=== PATIENT | female | born 1970 | race Caucasian/White ===

== ENCOUNTER 2017-02-03 10:34 | Observation (INO) | payer OTHER ==
[2017-02-03] MEDS ORDERED: OXYCODONE/APAP 5/325 TAB PO ONE (11:41)
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
[2017-02-03] MEDS ORDERED: NS 1,000 ML IV ONE ×2 (13:30→13:32)
[2017-02-03 13:46] LABS: % IMMATURE GRANULYOCYTES 0.7 % (0.0-1.1); ABSOLUTE IMMATURE GRANULOCYTES 0.12 10^3/uL (0.00-0.10); ADD DIFF? NO; ADD MORPH? NO; ADD SCAN? NO; ATYPICAL LYMPHOCYTE FLAG 10 (0-99); FRAGMENT RBC FLAG 0 (0-99); HEMATOCRIT 38.2 % (38.0-47.0); HEMOGLOBIN 13.1 g/dL (12.6-16.3); LEFT SHIFT FLG 0 (0-99); LIPEMIA HEMOLYSIS FLAG 90 (0-99); MEAN CELL HEMOGLOBIN 31.6 pg (27.9-34.1); MEAN CELL HEMOGLOBIN CONCENTR. 34.3 g/dL (32.4-36.7); MEAN PLATELET VOLUME 9.2 fL (8.7-11.7); PLATELET CLUMPS FLAG 0 (0-99); PLATELET COUNT 301 10^3/uL (150-400); RED BLOOD CELL COUNT 4.15 10^6/uL (4.18-5.33)
[2017-02-03 14:07] LABS: ANION GAP 12 mEq/L (8-16); CALCIUM 9.8 mg/dL (8.5-10.4); CARBON DIOXIDE 21 mEq/l (22-31); CHLORIDE 107 mEq/L (97-110); CREATININE 0.7 mg/dL (0.6-1.0); GLOMERULAR FILTRATION RATE > 60; GLUCOSE 106 mg/dL (70-100); POTASSIUM 3.7 mEq/L (3.5-5.2); SODIUM 140 mEq/L (134-144)
[2017-02-03] MEDS ORDERED: HYDROmorphONE/DILAUDID 1 MG/ML SYR IVP ONE ×3 (15:43→17:58)
[2017-02-03] MEDS ORDERED: ONDANSETRON 4 MG/2 ML VIAL IVP PRN (15:43)
[2017-02-03] MEDS ORDERED: ONDANSETRON 4 MG/2 ML VIAL ONE (15:45)
[2017-02-03] MEDS ORDERED: HYDROmorphONE/DILAUDID 1 MG/ML SYR ONE (17:08)
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
[2017-02-03] MEDS ORDERED: KETOROLAC 30 MG/1 ML SDV IVP ONE (20:32)
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
[2017-02-03] MEDS ORDERED: D5W 1/2 NS W/ 20 KCl/L 1,000 ML IV SCH (20:45)
[2017-02-03] MEDS: HYDROmorphONE/DILAUDID 1 MG/ML SYR IVP PRN ×2 (20:50→23:06)
[2017-02-03] MEDS: ONDANSETRON 4 MG/2 ML VIAL IVP PRN (20:54)
[2017-02-03] MEDS ORDERED: NATURE THYROID PO SCH (21:00)
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
[2017-02-04] MEDS: HYDROmorphONE/DILAUDID 1 MG/ML SYR IVP PRN ×3 (01:59→06:23)
[2017-02-04] MEDS: KETOROLAC 15 MG/1 ML SDV IVP SCH ×4 (02:01→16:50)
[2017-02-04 05:07] LABS: % IMMATURE GRANULYOCYTES 0.3 % (0.0-1.1); ABSOLUTE IMMATURE GRANULOCYTES 0.03 10^3/uL (0.00-0.10); ADD DIFF? NO; ADD MORPH? NO; ADD SCAN? NO; ATYPICAL LYMPHOCYTE FLAG 0 (0-99); FRAGMENT RBC FLAG 0 (0-99); HEMOGLOBIN 11.1 g/dL (12.6-16.3); LEFT SHIFT FLG 0 (0-99); LIPEMIA HEMOLYSIS FLAG 80 (0-99); MEAN CELL HEMOGLOBIN 31.5 pg (27.9-34.1); MEAN CELL HEMOGLOBIN CONCENTR. 32.6 g/dL (32.4-36.7); MEAN CELL VOLUME 96.6 fL (81.5-99.8); MEAN PLATELET VOLUME 8.9 fL (8.7-11.7); PLATELET CLUMPS FLAG 0 (0-99); PLATELET COUNT 229 10^3/uL (150-400); RED BLOOD CELL COUNT 3.52 10^6/uL (4.18-5.33); RED CELL DISTRIBUTION WIDTH 13.3 % (11.5-15.2)
[2017-02-04] MEDS: ONDANSETRON 4 MG/2 ML VIAL IVP PRN (06:36)
[2017-02-04] MEDS ORDERED: DIAZEPAM 2 MG TAB PO PRN (07:54)
[2017-02-04 08:24] VITALS: RESP 14
[2017-02-04] MEDS: ACETAMINOPHEN 325 MG TAB PO PRN ×2 (09:13→15:54)
[2017-02-04] MEDS: oxyCODONE IR 5 MG TAB PO PRN ×4 (09:13→17:16)
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
--- NOTE | 2017-02-04 13:04 | SOAPPROG ---
SOAP Progress Note Assessment/Plan: Assessment: 1 day post closed L clavicle shaft fracture, currently without indication for ORIF. Plan: NWB LUE in immobilizer, position of comfort. Gentle care for procedures such as CXR going forward. PO analgesics. Mob OOB as much as possible. TEDs/ SCDs rec'd, chemoprophylaxis per primary team. No smoking or NSAIDs (d/c ketorolac at this time). Recheck in our clinic in 5-7 days with new XRs, and if significant displacement occurs, then ORIF may be indicated. May be d/c'd home at any time per ortho concerns. Please call with any questions. 02/04/17 13:01 Subjective: C/o L clavicle and neck pain. Concerned about L clavicle fx motion with CXR this AM. No other or new complaints. Objective: Vital Signs Temp Pulse Resp BP Pulse Ox 36.9 C 66 14 108/97 H 96 02/04/17 08:23 02/04/17 08:23 02/04/17 08:23 02/04/17 08:23 02/04/17 08:23 Laboratory Results 02/04/17 04:45 02/03/17 02/04/17 02/05/17 05:59 05:59 05:59 Intake Total 600 Output Total 650 Balance -50 L shoulder w/o ecchy/calor/erythema; mild edema. Skin intact and w/o tenting or deformation. LT sens and motor function intact x ax nerve. DNVI BUEs. CXR - possible subtle further shortening to 14 or 15mm on CXR, though with paralax this may be artifact. Good bony apposition. ICD10 Worksheet Patient Problems: Problems Problem Status Onset Clavicle fracture Acute Contusion, chest wall Acute Laceration of right lower leg Acute Rib fracture Acute
[2017-02-04 15:18] VITALS: BP 115/77; PULSE 63; TEMP 98.8; O2SAT 93
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
== END 2017-02-04 18:42 | disposition home or self-care (01) ==
LOC: F3N 18:23
PROVIDERS: ADMIT Surgery; ATTEND Surgery
PROC: 0HQKXZZ Repair Right Lower Leg Skin, External Approach (ICD-10-PCS; principal; 2017-02-03)
DX: S42.025A Nondisplaced fracture of shaft of left clavicle, initial encounter for closed fracture (principal); S22.42XA Multiple fractures of ribs, left side, initial encounter for closed fracture; S81.812A Laceration without foreign body, left lower leg, initial encounter; V18.0XXA Pedal cycle driver injured in noncollision transport accident in nontraffic accident, initial encounter; Y92.410 Unspecified street and highway as the place of occurrence of the external cause; Y93.55 Activity, bike riding; Y99.8 Other external cause status; R55 Syncope and collapse; S42.022A Displaced fracture of shaft of left clavicle, initial encounter for closed fracture; Y92.238 Other place in hospital as the place of occurrence of the external cause; E03.9 Hypothyroidism, unspecified
CPT/HCPCS: 12001; 71010; 71020; 71100; 73000; 73030; 96374; 96375; 96376; 97161; 99285; G0378; J1170; J1885; J2405

== ENCOUNTER → 2017-07-29 | Outpatient (CLI) | payer OTHER | LOC: FIMAGING 12:26 | PROVIDERS: ATTEND Obstetrics & Gynecology Gynecology | DX: Z12.31 Encounter for screening mammogram for malignant neoplasm of breast (principal) | CPT/HCPCS: G0202 ==